=== PATIENT | male | born 2000 ===

== ENCOUNTER 2025-04-24 14:11 | Emergency (ER) | payer OTHER, SELFPAY ==
[2025-04-24 14:24] VITALS: BP 155/99; PULSE 98; RESP 18; TEMP 37.1; O2SAT 99
--- NOTE | 2025-04-24 15:21 | ED.WOUNDLAC ---
HPI - Wound/Laceration General Chief Complaint: Wound/Laceration Stated Complaint: left hand finger cut Time Seen by Provider: 04/24/25 14:30 Source: patient and RN notes reviewed Mode of arrival: ambulatory Limitations: no limitations History of Present Illness HPI narrative: 25-year-old male patient presents [facility] complaining of finger laceration to his left hand. Patient said approximately 1 hour ago at work he was using a pocket knife when he accidentally cut the distal end of his left index finger. Patient was sent here for further evaluation. Patient denies any other injuries. Patient denies any numbness or tingling. Patient denies any problems with using his fingers. Patient's tetanus is not today. Related Data Allergies Allergy/AdvReac Type Severity Reaction Status Date / Time No Known Allergies Allergy Verified 11/26/18 02:50 Review of Systems Review of Systems: CONSTITUTIONAL: Denies fever, chills, or sweats. EYES: Denies visual changes, redness, or discharge. ENT: Denies rhinorrhea, congestion, sore throat, or otalgia. CARDIOVASCULAR: Denies chest pain, palpitations, or edema. RESPIRATORY: Denies cough or dyspnea. GASTROINTESTINAL: Denies abdominal pain, nausea, vomiting, or diarrhea. GENITOURINARY: Denies dysuria or hematuria. SKIN: Denies rash or itching. Positive for laceration. MUSCULOSKELETAL: Denies back pain, joint pain, or myalgia. NEUROLOGIC: Denies headache, numbness, or weakness. PSYCHIATRIC: Denies anxiety or depression. All other systems reviewed are negative, except as documented in HPI. PMFSH Social History Social History Smoking status: Current every day smoker Comments At the time of my signature, I reviewed and agree with the nursing past medical, surgical, social, and family history. There is no relevant family history pertinent to the patient complaint. Exam Narrative: GENERAL: This is a well-nourished, well-developed adult, in no apparent distress. They are non ill-appearing, nontoxic appearing. HEAD: normocephalic, atraumatic. EYES: Sclera clear/white. Conjunctiva normal. Vision is grossly intact. Extraocular movements intact EARS: External ears normal, Hearing grossly intact. NOSE: External nose normal THROAT: Mucous membranes moist, NECK: Neck supple, CARDIOVASCULAR: Regular rate and rhythm RESPIRATORY: Respiratory rate normal, respiratory effort nonlabored, no respiratory distress SKIN: warm, Dry, intact with no suspicious lesions or rash, good texture and turgor. NEURO: awake, alert, and oriented to person, place and time. There were no obvious focal neurologic abnormalities. EXTREMITIES: Left index finger: Horizontal laceration to the palmar surface of the distal index finger. Lacerations in between the tip of the finger and the PIP joint. Is measuring approximately 2.5 cm long. It approximates well. Patient is able to flex and extend against resistance at the PIP, DIP, MCP joint. Sensation intact. Normal range of motion. Capillary refill less than 2 seconds. Neurovascular status intact distal injury. Left radial pulse 2 +and palpable. Radial, ulnar, median nerve distribution intact. Nail plate and nail bed intact. BACK: Nontender without deformity. No CVA tenderness. Course Course Emergency Course: Portions of this record may have been created with voice recognition software Level of Care: Express Care Visit Vital Signs Vital signs: Vital Signs Temperature 98.7 F 04/24/25 14:24 Pulse Rate 98 04/24/25 14:24 Respiratory Rate 18 04/24/25 14:24 Blood Pressure 155/99 H 04/24/25 14:24 Pulse Oximetry 99 04/24/25 14:24 Oxygen Delivery Room Air 04/24/25 14:24 Temperature 98.7 F 04/24/25 14:24 Pulse Rate 98 04/24/25 14:24 Respiratory Rate 18 04/24/25 14:24 Blood Pressure 155/99 H 04/24/25 14:24 Pulse Oximetry 99 04/24/25 14:24 Oxygen Delivery Room Air 04/24/25 14:24 Reviewed Procedures Laceration Laceration 1: Date: 04/24/25 Time: 14:55 Site: hand (Left index finger) Side (If applicable): left Size (cm): 2.5 Description: linear Depth: simple, single layer Local Anesthetic: lidocaine 1% Amount of anesthesia used (mL): 1.5 Pre-repair: wound explored and irrigated extensively ====== Skin Level ====== Skin layer closed with: nylon Size (cm): 5-0 Number of sutures: 5 Technique: simple, interrupted ====== Subcutaneous Layer ====== ====== Muscle Layer ====== ====== Tendon Layer ====== Dressing: Triple antibiotic ointment, a non adherent dressing. MDM - Wound/Laceration MDM Narrative Medical decision making narrative: Neurovascular status intact distal injury. No dysfunction of the left index finger. Successful laceration repair of left index finger. Patient's tetanus is updated today. Discussed physical exam findings. Advised supportive measures and signs/symptoms to go to the ER. Pt is appropriate for outpt treatment and f/u. Differential Diagnosis Differential diagnosis: Likely laceration, abrasion and avulsion of skin Critical Care Time Critical Care Time Critical Care Time: No Discharge Plan Discharge Clinical Impression: Finger laceration Qualifiers: Encounter type: initial encounter Finger: index finger Damage to nail status: without damage Foreign body presence: without foreign body Laterality: left Qualified Code(s): S61.211A - Laceration without foreign body of left index finger without damage to nail, initial encounter Patient Disposition: Home Condition: Stable Instructions: Care For Your Stitches (ED), Finger Laceration (ED) Additional Instructions: Your tetanus is updated today. Your sutures need to be removed in 10-14 days. ?Wear the dressing that has been applied for the first 24 hours to allow a scab to start forming. ?After this, you may remove and wash as mild soap and water. ?Do NOT wash with peroxide or alcohol. ?Apply bacitracin or Vaseline daily to the wound. Do not soak or scrub the wound. Avoid dirty water to the wound has healed completely. Keep the wound dry and covered especially at work. At night you may leave it open to air. Tylenol or Motrin as needed for pain. Follow instructions on the bottle. Follow up with your PCP 3-5 days for re-evaluation. Look for any signs of infection such as redness, swelling, increased pain,, fevers or green/yellow drainage. ?To the ER for any signs of infection or any serious concerns. Patient Language: Slovenian Follow-up/Referrals: PHYSICIAN,CHISELER HEAD [Primary Care Provider, Internal Medicine] Time of Disposition: 15:19
[2025-04-24] MEDS: TETANUS,DIPHTHERIA,AC PERTUSSIS ADULT (0.5 ML) BOOSTRIX IM (15:24)
== END 2025-04-24 15:34 | disposition home or self-care (01) ==
DX: S61.211A Laceration without foreign body of left index finger without damage to nail, initial encounter (principal); F17.200 Nicotine dependence, unspecified, uncomplicated; Z23 Encounter for immunization; W26.0XXA Contact with knife, initial encounter
CPT/HCPCS: 12001; 90471; 90715; 99212; G0463